=== PATIENT | male | born 1995 | race African-American/Black ===

== ENCOUNTER → 2024-05-10 | Outpatient (CLI) | payer OTHER ==
[2024-05-10 10:58] LABS: BILIRUBIN,DIRECT 0.5 MG/DL (<0.4); BILIRUBIN,TOTAL 1.6 MG/DL (0.3-1.2); TOTAL PROTEIN 7.1 G/DL (5.7-8.2)
== END ==
LOC: M LAB 09:55
PROVIDERS: ATTEND Physician Assistant Medical
DX: Z51.81 Encounter for therapeutic drug level monitoring (principal); B35.0 Tinea barbae and tinea capitis